=== PATIENT | male | born 1985 | race African-American/Black ===

== ENCOUNTER 2019-03-02 16:27 | Emergency (ER) | payer BC ==
[~2019-03-02] VITALS: Ht 182.9 cm; Wt 90.7 kg
--- NOTE | 2019-03-02 17:11 | Diagnostic Imaging Report ---
Exam: KUB - 2 views Clinical History: Abdominal pain Comparison: None Findings: Nonobstructive bowel gas pattern. No evidence of free intraperitoneal air. No evidence of abnormal calcification. No acute bony abnormality. Impression: No acute radiographic abnormality. Signed by: Sudhakar Marrero MD on 03/02/2019 5:08 PM
== END 2019-03-02 17:19 | disposition home or self-care (01) ==
LOC: FSED 16:27
DX: R10.32 Left lower quadrant pain (principal); K59.00 Constipation, unspecified
CPT/HCPCS: 74018; 99283